=== PATIENT | female | born 1995 | race Two or more races ===

== ENCOUNTER 2016-12-16 20:09 | Inpatient (IN) | payer MEDICAID ==
[2016-12-16 20:36] LABS: APPEARANCE,URINE SLIGHTLY-CLOUDY; BILIRUBIN,URINE NEGATIVE (NEGATIVE); GLUCOSE, URINE NEGATIVE (NEGATIVE); KETONES,URINE 80 mg/dL (NEGATIVE); LEUKOCYTE ESTERASE,URINE NEGATIVE (NEGATIVE); NITRITE,URINE NEGATIVE (NEGATIVE); PROTEIN,URINE NEGATIVE (NEGATIVE); URINE SPECIFIC GRAVITY 1.012; UROBILINOGEN,URINE NEGATIVE mg/dL (<2.0)
[2016-12-16 21:05] LABS: ABSOLUTE EOSINOPHILS # (AUTO) 0.1 10^3/uL (0.0-0.6); ABSOLUTE LYMPHOCYTES (AUTO) 1.2 10^3/uL (0.5-4.7); ABSOLUTE MONOCYTES (AUTO) 0.7 10^3/uL (0.1-1.4); ABSOLUTE NEUT (AUTO) 11.4 10^3/uL (1.7-8.2); BASOPHILS % (AUTO) 0.3 % (0-2); HEMATOCRIT 33.1 % (36.0-47.0); HGB HCT DIFFERENCE -0.1; LYMPHOCYTES % (AUTO) 9.1 % (13-45); MEAN CORPUSCULAR HEMOGLOBIN 29.2 pg (27.0-33.4); MEAN CORPUSCULAR HGB CONC 33.3 g/dL (32.0-36.0); MEAN CORPUSCULAR VOLUME 88 fl (80-97); MONOCYTES % (AUTO) 5.5 % (3-13); RED BLOOD COUNT 3.77 10^6/uL (3.72-5.28); SEGMENTED NEUTROPHILS % (AUTO) 84.1 % (42-78); WHITE BLOOD COUNT 13.6 10^3/uL (4.0-10.5)
[2016-12-16] MEDS ORDERED: RINGERS SOLUTION,LACTATED 1,000 ML IV PRN (21:12)
[2016-12-16] MEDS ORDERED: RINGERS SOLUTION,LACTATED 1,000 ML IV ONE (21:12)
[2016-12-16 21:24] LABS: URINE BARBITURATES SCREEN NEGATIVE; URINE METHADONE SCREEN NEGATIVE; URINE OPIATES LOW NEGATIVE; URINE PHENCYCLIDINE SCREEN NEGATIVE
[2016-12-16] MEDS ORDERED: MISOPROSTOL 0.2 MG TABLET ONE (21:27)
[2016-12-16] MEDS ORDERED: OXYTOCIN/NORMAL SALINE 20 UNIT/1,000 ML RTUINJ ONE (21:28)
[2016-12-16] MEDS ORDERED: LIDOCAINE 1% INJ-PF (10 MG/ML) 30 ML SDV ONE (21:28)
[2016-12-16] MEDS ORDERED: OXYTOCIN/NORMAL SALINE 1,000 ML IV PRN (22:45)
[2016-12-16] MEDS ORDERED: NA PHOS,M-B/NA PHOS,DI-BA (ADULT) 133 ML ENEMA PR PRN (22:45)
[2016-12-16] MEDS ORDERED: ACETAMINOPHEN WITH CODEINE #3 TABLET PO PRN ×2 (22:45)
[2016-12-16] MEDS ORDERED: ZOLPIDEM TARTRATE 5 MG TABLET PO PRN (22:45)
[2016-12-16] MEDS ORDERED: PROMETHAZINE HCL 25 MG SUPP.RECT PR PRN (22:45)
[2016-12-16] MEDS ORDERED: GLYCERIN/WITCH HAZEL LEAF 1 EACH MED..PAD TP PRN (22:45)
[2016-12-16] MEDS ORDERED: PROMETHAZINE HCL INJ 25 MG/1 ML VIAL IV PRN (22:45)
[2016-12-16] MEDS ORDERED: BENZOCAINE/MENTHOL AEROSOL SPRAY 56 ML TOP PRN (22:45)
[2016-12-16] MEDS ORDERED: ACETAMINOPHEN 650 MG SUPP.RECT PR PRN (22:45)
[2016-12-16] MEDS ORDERED: PROMETHAZINE HCL 25 MG TABLET PO PRN (22:45)
[2016-12-16] MEDS ORDERED: DIBUCAINE 1% OINTMENT 28 GM TP PRN (22:45)
[2016-12-16] MEDS ORDERED: DIPH/PERTUSS(ACELL)/TETANUS VAC/PF 0.5 ML SYR (>=10YO) IM PRN (22:45)
[2016-12-16] MEDS ORDERED: DIPHENHYDRAMINE HCL 25 MG CAPSULE PO PRN (22:45)
[2016-12-16] MEDS ORDERED: MAGNESIUM HYDROXIDE SUSP 30 ML UDCUP PO PRN (22:45)
[2016-12-16] MEDS ORDERED: PSEUDOEPHEDRINE HCL 30 MG TABLET PO PRN (22:45)
[2016-12-16] MEDS ORDERED: ACETAMINOPHEN 325 MG TABLET PO PRN (23:50)
[2016-12-16] MEDS ORDERED: ACETAMINOPHEN 325 MG TABLET ONE (23:54)
--- NOTE | 2016-12-17 00:20 | Admission Physical ---
Datetime Report Generated by CPN: 12/17/2016 00:19 CURRENT ADMISSION Chief Complaint: Uterine Contractions Indication for Induction: Not Applicable Admit Plan: Admit to Unit; Initiate Labor Protocol ALLERGIES Medication Allergies: No Medication Allergies: No Known Allergies (12/16/2016) Medication Allergies: No Known Allergies (01/20/2014) Latex: No Latex Allergies OBSTETRICAL HISTORY EDC: 12/17/2016 00:00 : 3 Para: 1 Term: 1 : 0 SAB: 1 IAB: 0 Ectopic: 0 Livin Cesareans: 0 VBACs: 0 Multiple Births: 0 Gestational Diabetes: No Rh Sensitization: No Incompetent Cervix: No YANELY: No Infertility: No ART Treatment: No Uterine Anomaly: No IUGR: No Hx Previous C/S: No Macrosomia: No Hx Loss/Stillborn: No PIH: No Hx : No Placenta Previa/Abruption: No Depression/PP Depression: No PTL/PROM: No Post Hemorrhage: No Current Procedures: Ultrasound; NST Obstetrical History Comments: G1 - 2013 G2 - Current SEE RECORDS Alcohol: No Marijuana : No Cocaine: No Other Illicit Drugs: No Cigarettes: Never Smoker. [id number] MEDICAL HISTORY Diabetes: No Blood Transfusion: No Pulmonary Disease (Asthma, TB): No Breast Disease: No Hypertension: No Traveling Missionary Surgery: No Heart Disease: No Hosp/Surgery: Yes Autoimmune Disorder: No Anesthetic Complications: No Kidney Disease: No Abnormal Pap Smear: No Neuro/Epilepsy: No Psychiatric Disorders: No Other Medical Diseases: No Hepatitis/Liver Disease: No Significant Family History: No Varicosities/Phlebitis: No Trauma/Violence : No Thyroid Dysfunction: No INFECTIOUS HISTORY Gonorrhea: No Genital Herpes: No Chlamydia: No Tuberculosis: No Syphilis: No Hepatitis: No HIV/AIDS Exposure: No Rash or Viral Illness: No HPV: No PHYSICAL EXAM General: Normal HEENT: Normal Neurologic: Normal Thyroid: Normal Heart: Normal Lungs: Normal Breast: Deferred Back: Normal Abdomen: Normal Genitourinary Exam: Normal Extremities: Normal DTRs: Normal Pelvic Type: Adequate Vital Signs: Reviewed; Within Normal Limits VAGINAL EXAM Dilatation: 5 Effacement: 80 Station: -2 MEMBRANES Membranes: Intact Amniotic Fluid Color: Meconium, Light FETUS A EGA: 39.6 Monitoring: External US FHR- Baseline: 125 Variability: Moderate 6-25bpm Accelerations: 15X15 Decelerations: None FHR Category: Category I Presentation: Vertex Admit Comment: 21yo at 39+6ega presents with regular uterine ctx. Cvx 5-6/80/-2 with BBOW. Failed 1 hr GTT - normal 3 hr GTT. close interval and late to care at 17wks. Pt is in active labor. Admit to L_D for active labor. Anticpate . AROM and augment labor if needed. Pelvis proven to 7#2oz. PLANS FOR LABOR AND DELIVERY Labor and Delivery: None Pain Management: Natural Feeding Preference: Breast Benefit of Breast Feed Discussed: Yes Circumcision: N/A INFORMED CONSENT Informed Consent Obtained: Vaginal Delivery; Risks, Benefits and Alternatives Discussed Signature: with User ID: [email or web address]
[2016-12-17] MEDS: IBUPROFEN 800 MG TABLET PO SCH ×3 (05:22→21:20)
[2016-12-17] MEDS: ACETAMINOPHEN 325 MG TABLET PO PRN ×2 (05:22→12:39)
[2016-12-17 07:11] LABS: HEMATOCRIT 35.5 % (36.0-47.0); HEMOGLOBIN 11.6 g/dL (12.0-15.5); HGB HCT DIFFERENCE -0.7; MEAN CORPUSCULAR HGB CONC 32.7 g/dL (32.0-36.0); MEAN CORPUSCULAR VOLUME 89 fl (80-97); RED BLOOD COUNT 4.01 10^6/uL (3.72-5.28); RED CELL DISTRIBUTION WIDTH 13.2 % (11.5-14.0); WHITE BLOOD COUNT 18.1 10^3/uL (4.0-10.5)
[2016-12-17] MEDS: SENNOSIDES/DOCUSATE 8.6-50 MG 1 EACH TABLET PO SCH (09:47)
[2016-12-17] MEDS: FERROUS SULFATE 325 MG TABLET PO SCH ×2 (09:47→16:52)
[2016-12-17] MEDS: FAMOTIDINE 20 MG TABLET PO SCH ×2 (09:47→21:20)
[2016-12-17] MEDS: DOCUSATE SODIUM 100 MG CAPSULE PO SCH ×2 (09:51→16:52)
[2016-12-17] MEDS: PRENATAL VITAMIN W-O CA NO5/FE FUMARATE/FA CAPSULE PO SCH (09:51)
[2016-12-18] MEDS: IBUPROFEN 800 MG TABLET PO SCH ×2 (05:03→13:37)
--- NOTE | 2016-12-18 07:36 | Delivery Summary ---
Del Sum A-C Datetime Report Generated by CPN: 12/18/2016 07:35 DELIVERY PERSONNEL DELIVERY PERSONNEL: [phone] Delivery Doctor:: Tracie Pacheco CNM Labor and Delivery Nurse:: Ivana Sibley RN Nursery Nurse:: Karen Ridley RN [employer]/BI LEAD: Edmond Ertel, BI LEAD MATERNAL INFORMATION Delivery Anesthesia: Local Medications After Delivery: Pitocin Drip 20 Units/1000ml NSS Meds After Delivery Comment: Pitocin 20 un bolus Estimated Blood Loss (ml): 300 Maternal Complications: Precipitous Labor (<3hrs) Provider Comments: delivery of viable female bulb suctioned on perineum NIEVES to abdomen cord clamped x2 and cut by FOB cord blood obtained 3VC nursery nurse at bedside tactile stimulation elicits spont cry placenta intact bolton fashion EBL 300 cc 2nd degree vaginal laceration repaired with 1% lidocaine pt tolerated well hemostasis achieved pt bonding well with LABOR SUMMARY EDC: 12/17/2016 00:00 No. Babies in Womb: 1 Attempted: No Labor Anesthesia: None LABOR INFORMATION Reason for Induction: Not Applicable Onset of Labor: 12/16/2016 20:32 Complete Dilatation: 12/16/2016 21:50 Oxytocin: N/A Group B Beta Strep: Negative Antibiotics # of Doses: 0 Steroids Given: None Reason Steroids Not Administered: Not Applicable MEMBRANES Membranes Rupture Method: Artificial Rupture of Membranes: 12/16/2016 21:23 Length of Rupture (hr): 0.72 Amniotic Fluid Color: Light Meconium Amniotic Fluid Amount: Moderate Amniotic Fluid Odor: Normal STAGES OF LABOR Stage 1 hr: 1 Stage 1 min: 18 Stage 2 hr: 0 Stage 2 min: 16 Stage 3 hr: 0 Stage 3 min: 4 Total Time in Labor hr: 1 Total Time in Labor min: 38 VAGINAL DELIVERY Episiotomy: None Laceration Extension: Second Degree Laceration Type: Vaginal Laceration Repair: Yes Sponge Count Correct: N/A Sharps Count Correct: N/A CSECTION DELIVERY Primary Indication: N/A Secondary Indication: N/A CSection Incidence: N/A Labor: N/A Elective: N/A CSection Incision: N/A BABY A INFORMATION Infant Delivery Date/Time: 12/16/2016 22:06 Method of Delivery: Vaginal Born in Route : No : N/A Forceps: N/A Vacuum Extraction: N/A Shoulder Dystocia : No PRESENTATION/POSITION BABY A Presentation: Cephalic Cephalic Presentation: Vertex Vertex Position: Left Occipital Anterior Breech Presentation: N/A PLACENTA INFORMATION BABY A Placenta Delivery Time : 12/16/2016 22:10 Placenta Method of Delivery: Spontaneous Placenta Status: Delivered SCORES BABY A Heart Rate 1 min: >100 bpm Resp Effort 1 min: Good Cry Reflex Irritability 1 min: Cough or Sneeze or Pulls Away Muscle Tone 1 min: Active Motion Color 1 min: Blue/Pale Resuscitation Effort 1 min: N/A SCORE 1 MIN: 8 Heart Rate 5 min: >100 bpm Resp Effort 5 min: Good Cry Reflex Irritability 5 min: Cough or Sneeze or Pulls Away Muscle Tone 5 min: Active Motion Color 5 min: Body Brinckerhoff, Extremities Blue Resuscitation Effort 5 min: N/A SCORE 5 MIN: 9 INFORMATION BABY A Gestational Age at Delivery: 39.6 Gestational Status: Full Term- 39- 40.6 Weeks Outcome : Liveborn Condition : Stable Infant Sex: Female IDENTIFICATION BABY A Verification Date/Time: 12/16/2016 22:27 ID Band Number: [id number] Mother's Name Verified: Yes RN Verifying : STello Hamrossanacasimarilin, RN Additional Verifying Personnel: oRb Cabral, BI LEAD/US WEIGHT/LENGTH BABY A Infant Birthweight (gm): 3680 Weight (lb): 8 Infant Weight (oz): 2 Length (in): 20.00 Infant Length (cm): 50.80 CORD INFORMATION BABY A No. Cord Vessels: 3 Nuchal Cord : N/A Cord Blood Taken: Yes-For Eval (Mom's Blood Type - or O+) Suction: Mouth; Nose ASSESSMENT BABY A Infant Complications: None Physical Findings at Delivery: Within Normal Limits Infant Respirations: Appears Normal Skin to Skin: Yes Skin to Skin: Yes Rn Wound/ALS Called : No Care By: Donn Ridley RN Transferred To: Remains with Mother BABY B INFORMATION : N/A SIGNATURES Assignment: Nena Lyles MD Signature: with User ID: [email or web address] : with User ID: [email or web address]
[2016-12-18 09:12] VITALS: BP 94/63
[2016-12-18] MEDS: FERROUS SULFATE 325 MG TABLET PO SCH ×2 (09:59→18:09)
[2016-12-18] MEDS: SENNOSIDES/DOCUSATE 8.6-50 MG 1 EACH TABLET PO SCH (09:59)
[2016-12-18] MEDS: FAMOTIDINE 20 MG TABLET PO SCH (09:59)
[2016-12-18] MEDS: DOCUSATE SODIUM 100 MG CAPSULE PO SCH ×2 (09:59→18:09)
[2016-12-18] MEDS: PRENATAL VITAMIN W-O CA NO5/FE FUMARATE/FA CAPSULE PO SCH (09:59)
--- NOTE | 2016-12-18 16:21 | PDOC DISCHARGE SUMMARY ---
Final Diagnosis Discharge Date: 12/18/16 - Final Diagnosis (1) Is this a current diagnosis for this admission?: Yes (2) Delivery normal Is this a current diagnosis for this admission?: Yes Discharge Data - Discharge Medication Home Medications: Vit#96/Ferrous Fum/FA [ Tablet] 1 tab PO DAILY 01/19/14 Ibuprofen [Motrin 800 mg Tablet] 800 mg PO Q8HP PRN #60 tablet 12/18/16 Reason(s) for Admission: Onset of Labor, Rh incompatibility Procedures: Ultrasound Intrapartum Procedure(s): Spontaneous Vaginal Delivery Complication(s): Laceration-Vaginal Laceration-Degree: 2nd - Diagnosis Test Laboratory: Temp Pulse Resp BP Pulse Ox 98.4 F 65 16 94/63 L 100 12/18/16 09:06 12/18/16 09:06 12/18/16 09:06 12/18/16 09:06 12/18/16 09:06 12/16/16 12/16/16 12/17/16 20:22 20:55 06:55 RBC 3.77 4.01 Hgb 11.0 L 11.6 L Hct 33.1 L 35.5 L Urine Opiates Screen NEGATIVE - Discharge information/Instructions Discharge Activity: Activity As Tolerated, Balance Activity w/Rest, No Lifting Over 10 Pounds, No Lifting/Push/Pulling, Pelvic Rest, Slowly Increase Activity, No tub bath Discharge Diet: As Tolerated, Regular Disposition: HOME, SELF-CARE Follow up with: [facility] in: 4, Weeks
== END 2016-12-18 20:35 | disposition home or self-care (01) | DRG 775 ==
LOC: LC 20:09 → LR 20:44 → 2S 12-17 00:18
PROVIDERS: ADMIT Student in an Organized Health Care Education/Training Program; ATTEND Student in an Organized Health Care Education/Training Program
PROC: 10E0XZZ Delivery of Products of Conception, External Approach (ICD-10-PCS; principal; 2016-12-16)
PROC: 0KQM0ZZ Repair Perineum Muscle, Open Approach (ICD-10-PCS; 2016-12-16)
PROC: 10907ZC Drainage of Amniotic Fluid, Therapeutic from Products of Conception, Via Natural or Artificial Opening (ICD-10-PCS; 2016-12-16)
PROC: 4A1HXCZ Monitoring of Products of Conception, Cardiac Rate, External Approach (ICD-10-PCS; 2016-12-16)
DX: O62.3 Precipitate labor (principal); O70.1 Second degree perineal laceration during delivery; Z3A.39 39 weeks gestation of pregnancy; Z37.0 Single live birth
CPT/HCPCS: 36415; 80307; 81005; 85025; 85027; 85461; 86592; 86850; 86900; 86901; J2590; J2790; J3490